=== PATIENT | female | born 1960 | race African-American/Black ===

== ENCOUNTER 2018-02-07 14:55 | Emergency (ER) | payer MEDICAID ==
[~2018-02-07] VITALS: Ht 149.9 cm; Wt 58.6 kg
[2018-02-07 15:07] VITALS: Ht 149.9 cm; Wt 58.6 kg
[2018-02-07] MEDS ORDERED: LIPITOR20 MG PO (15:09)
[2018-02-07] MEDS ORDERED: LANTUS INSULIN10 ML SC (15:09)
[2018-02-07] MEDS ORDERED: NOVOLOG100 U/M1 SC (15:09)
[2018-02-07] MEDS ORDERED: LISINOPRIL10 MG PO (15:09)
[2018-02-07] MEDS ORDERED: ISOSORBIDE MONO30 M1 PO (15:10)
[2018-02-07] MEDS ORDERED: METOPROLOL TART25 MG PO (15:10)
[2018-02-07] MEDS ORDERED: GABAPENTIN100 MG PO (16:33)
[2018-02-07 17:56] VITALS: BP 131/70
== END 2018-02-07 17:22 | disposition home or self-care (01) ==
LOC: D.ER 14:55
DX: M79.642 Pain in left hand (principal); M79.641 Pain in right hand; E11.9 Type 2 diabetes mellitus without complications; Z79.4 Long term (current) use of insulin; G62.9 Polyneuropathy, unspecified; I10 Essential (primary) hypertension

== ENCOUNTER 2018-05-10 10:57 | Emergency (ER) | payer MEDICAID ==
[~2018-05-10] VITALS: Ht 149.9 cm; Wt 60.5 kg
[~2018-05-10 10:57] MED LIST: GABAPENTIN100 MG PO; ISOSORBIDE MONO30 M1 PO; LANTUS INSULIN10 ML SC; LIPITOR20 MG PO; LISINOPRIL10 MG PO; METOPROLOL TART25 MG PO; NOVOLOG100 U/M1 SC
[2018-05-10 11:11] VITALS: Ht 149.9 cm; Wt 60.5 kg
[2018-05-10] MEDS ORDERED: ATARAX 25 MG TA25 MG PO (12:48)
[2018-05-10 13:12] VITALS: BP 138/081
== END 2018-05-10 13:14 | disposition home or self-care (01) ==
LOC: D.ER 10:57
DX: L50.9 Urticaria, unspecified (principal); R21 Rash and other nonspecific skin eruption; E11.9 Type 2 diabetes mellitus without complications; I10 Essential (primary) hypertension

== ENCOUNTER 2018-11-08 13:15 | Emergency (ER) | payer MEDICAID ==
[~2018-11-08] VITALS: Ht 149.9 cm; Wt 60.5 kg
[~2018-11-08 13:15] MED LIST changes: +ATARAX 25 MG TA25 MG PO
[2018-11-08 13:18] VITALS: Ht 149.9 cm; Wt 60.5 kg
[2018-11-08] MEDS ORDERED: MEDROL DOSE PACK4 MG PO (14:37)
[2018-11-08] MEDS ORDERED: CYCLOBENZAPRINE10 MG PO (14:37)
[2018-11-08 15:18] VITALS: BP 144/52
== END 2018-11-08 15:19 | disposition home or self-care (01) ==
LOC: D.ER 13:15
DX: M75.42 Impingement syndrome of left shoulder (principal)

== ENCOUNTER 2020-09-28 22:35 | Emergency (ER) | payer MEDICAID ==
[~2020-09-28] VITALS: Ht 149.9 cm; Wt 59.9 kg
[~2020-09-28 22:35] MED LIST changes: +CYCLOBENZAPRINE10 MG PO; +MEDROL DOSE PACK4 MG PO
[2020-09-28 22:39] VITALS: Ht 149.9 cm; Wt 59.9 kg
[2020-09-28 22:50] LABS: BASOPHILS 0.3 % (0-2); EOSINOPHILS 2.4 % (0-7); HEMATOCRIT 38.3 % (36.0-48.0); HEMOGLOBIN 12.1 g/dL (12-16); IMMATURE GRANULOCYTES 0.2 % (0-5); LYMPHOCYTE ABS# 2.52 10x3/uL (1.18-3.74); LYMPHOCYTES 38.5 % (15-50); MCH 25.2 pg (26.0-34.0); MCHC 31.6 g/dL (31.0-37.0); MCV 79.8 fL (80.0-100.0); MEAN PLATELET VOLUME 9.4 fL (7.4-10.4); MONOCYTES 8.9 % (2-11); NEUTROPHIL ABS# 3.26 10x3/uL (1.56-6.13); NEUTROPHILS 49.7 % (40-80); PLATELET COUNT 219 10x3/uL (130-400); RDW 13.8 % (11.5-14.5); WBC 6.6 10x3/uL (4.8-10.8)
[2020-09-28 23:01] LABS: APTT 30.5 SECONDS (22.8-39.4); CALC OSMOLALITY 278 mosm/kg (275-300); CALCIUM 9.1 mg/dL (8.5-10.1); CARBON DIOXIDE 29.2 mmol/L (21.0-32.0); CHLORIDE - SERUM 105 mmol/L (98-107); CREATININE - SERUM 0.8 mg/dL (0.6-1.3); INR 1.01 (0.85-1.17); POTASSIUM - SERUM 3.5 mmol/L (3.5-5.1); PROTIME 12.3 SECONDS (11.6-15.0); SODIUM 140 mmol/L (136-145); UREA NITROGEN 13 mg/dL (7-18); eGFR NON AFRICAN AMERICAN 78 mL/min (90-120)
[2020-09-28 23:03] LABS: GLUCOSE 105 mg/dL (74-106)
[2020-09-28 23:14] LABS: ALBUMIN 3.4 g/dL (3.4-5.0); ALKALINE PHOSPHATASE 252 U/L (30-120); ALT (SGPT) 53 U/L (10-68); BILIRUBIN - TOTAL 0.14 mg/dL (0.2-1.3); CKMB 0.6 U/L (0.0-3.6); CREATINE KINASE 151 UL (21-215); MAGNESIUM - SERUM 1.5 mg/dL (1.8-2.4); PROTEIN - SERUM 7.6 g/dL (6.4-8.2); TROPONIN-I < 0.017 ng/mL (0.000-0.060)
[2020-09-29 00:29] VITALS: BP 138/79
== END 2020-09-29 00:30 | disposition home or self-care (01) ==
LOC: D.ER 22:35 → EDBD 22:35 → D.ER 09-29 00:30
PROVIDERS: Family Medicine
DX: G43.909 Migraine, unspecified, not intractable, without status migrainosus (principal); I10 Essential (primary) hypertension; R42 Dizziness and giddiness; R11.0 Nausea; R53.81 Other malaise; R61 Generalized hyperhidrosis